=== PATIENT | male | born 2000 | race Hispanic/Latino ===

== ENCOUNTER 2024-12-22 10:33 | Emergency (ER) | payer SELFPAY ==
[2024-12-22] MEDS ORDERED: NA CHLORIDE 0.9% 1,000 ML ONE (10:49)
[2024-12-22] MEDS ORDERED: TDAP (DIPHTH,PERTUSS(ACELL),TET VAC) 0.5 ML VIAL IMVAC ONE (10:49)
[2024-12-22 10:57] LABS: Absolute Eosinophils 0.1 K/uL (0-0.5); Absolute Lymphocytes (CBC) 1.7 K/uL (0.7-4.9); Absolute Monocytes 0.6 K/uL (0.1-1.3); Absolute Neutrophil 6.3 K/uL (1.8-8.0); Basophils % 0.5 % (0-1.3); Eosinophils % 0.7 % (0-4.4); Hematocrit 46.5 % (39.6-49.0); Hemoglobin 16.1 g/dL (13.6-17.9); Lymphocytes % 19.9 % (15.3-44.8); MCH 31.6 pg (27.0-35.0); MCHC 34.6 g/dL (32.0-36.0); MCV 91.3 fL (80-100); MPV 7.9 fL (7.6-11.3); Monocytes % 6.6 % (3.3-12.3); Neutrophils % 72.3 % (41.7-73.7); Nucleated Red Blood Cells % 0.1 % (0-0); Platelets 336 thou/uL (152-406); Red Cell Distribution Width 13.1 % (12.1-15.2)
[2024-12-22 11:17] LABS: Anion Gap 10.8 mEq/L (5.0-15.0); Potassium 3.8 mEq/L (3.5-5.1)
--- NOTE | 2024-12-22 11:17 | RAD REPORT ---
EXAMINATION: Head C Spine Mpr Wo Con CLINICAL INDICATION: Male, 24 years old. TRAUMA TECHNIQUE: Axial CT images from the skull base to the vertex without intravenous contrast. Axial CT i mages through the cervical spine were obtained without intravenous contrast. Sagittal and coronal reformatted images were created from the data set. Coronal and sagittal reformatted images were creat ed from the data set. One or more of the following dose reduction techniques were used: Automated exposure control, adjustment of the mA and/or kV according to patient size, and/or iterative reconstr uction. Unless otherwise specified, incidental findings do not require dedicated imaging follow-up. [id number]. COMPARISON: No prior exam. FINDINGS: Head: INTRACRANIAL: No acute intracranial hemorrhage. No hydrocephalus. No mass effect or midline shift. No significant white matter disease. VASCULATURE: No visualized abnormalities in the arteries or dural venous sinuses. SCALP/SKULL: No calvarial fracture identified. No acute soft tissue abnormality. SINUSES: Polyp versus mucus retention cyst in a dilated left ethmoid air cell. No significant mastoid fluid. Cervical spine: ALIGNMENT: The cervical spine has normal alignment without scoliosis or spondylolisthesis. BONE: Vertebral body heights are maintained. No aggressive osseous lesions. DEGENERATIVE: No significant focal degenerative changes. SOFT TISSUE: No significant abnormalities in the soft tissue of the neck. The visualized lung apices are clear. IMPRESSION: No acute intracranial abnormality. No acute fracture or traumatic malalignment of the cervical spine.
--- NOTE | 2024-12-22 11:37 | ER ---
Nurse's Notes [facility] Name: Yohan Shetty Age: 24 yrs Sex: Male : 2000 Arrival Date: 12/22/2024 Time: 10:33 Bed 4 Private MD: Diagnosis: Scalp Laceration/ Open wound of scalp;Concussion with loss of consciousness of unspecified duration Presentation: 12/22 10:37 Chief complaint: Patient states: Most likely passed out in the shower this morning. ll1 Laceration to scalp noted. Coronavirus screen: Client denies travel out of the [place] in the last 14 days. At this time, the client does not indicate any symptoms associated with coronavirus-19. Ebola Screen: Patient denies travel to an Ebola-affected area in the 21 days before illness onset. Mechanism of Injury: The problem was sustained at home, resulted from a fall. Initial Sepsis Screen: Does the patient meet any 2 criteria? No. Patient's initial sepsis screen is negative. Does the patient have a suspected source of infection? No. Patient's initial sepsis screen is negative. Risk Assessment: Do you want to hurt yourself or someone else? Patient reports no desire to harm self or others. Onset of symptoms was December 22, 2024. 10:37 Method Of Arrival: Ambulatory ll1 10:37 Acuity: REENA 2 ll1 Triage Assessment: 10:38 General: Appears uncomfortable, Behavior is calm, cooperative, appropriate for age, ll1 Reports fatigue for possible syncope. Pain: Complains of pain in scalp Quality of pain is described as aching. Neuro: Level of Consciousness is awake, alert, obeys commands, Reports headache a syncopal episode weakness. Derm: Reports laceration to scalp. Musculoskeletal:. Injury Description: Head injury Bruise. Historical: - Allergies: 10:38 No Known Allergies; ll1 - PMHx: 10:38 None; ll1 - PSHx: 10:38 None; ll1 - Immunization history:: Adult Immunizations up to date. - Infectious Disease History:: Denies. - Social history:: Smoking status: Patient denies any tobacco usage or history of. Screenin:51 [facility] ED Fall Risk Assessment (Adult) History of falling in the last 3 months, ll1 including since admission Yes- physiologic fall (2 pts) Confusion or Disorientation Yes (5 pts) Intoxicated or Sedated No (0 pts) Impaired Gait Yes (1 pt) Mobility Assist Device Used Yes (1 pt) Altered Elimination No (0 pt) Score/Fall Risk Level 3 or more points = High Risk Maintained a safe environment, Hourly rounding (assess needs \T\ fall precautionary measures) done, Remained with patient while ambulating. Abuse screen: Denies threats or abuse. Nutritional screening: No deficits noted. Tuberculosis screening: No symptoms or risk factors identified. Assessment: 10:51 Reassessment: No changes from previously documented assessment. Patient and/or family ll1 updated on plan of care and expected duration. Pain level reassessed. Patient is alert, oriented x 3, equal unlabored respirations, skin warm/dry/pink. 11:30 Reassessment: No changes from previously documented assessment. Patient and/or family ll1 updated on plan of care and expected duration. Pain level reassessed. Patient is alert, oriented x 3, equal unlabored respirations, skin warm/dry/pink. 11:58 Reassessment: No changes from previously documented assessment. Patient and/or family ll1 updated on plan of care and expected duration. Pain level reassessed. Patient is alert, oriented x 3, equal unlabored respirations, skin warm/dry/pink. Patient states feeling better. Vital Signs: 10:37 BP 141 / 96; Pulse 96; Resp 16; Temp 98; Pulse Ox 100% on R/A; ll1 10:47 BP 141 / 96; Pulse 96; Resp 17; Temp 98; Pulse Ox 98% ; merly 11:58 BP 141 / 99; Pulse 89; Resp 16; Pulse Ox 100% ; ll1 11:58 BP 141 / 99; Pulse 89; Resp 16; Pulse Ox 100% ; ll1 [place] Coma Score: 10:37 Eye Response: spontaneous(4). Motor Response: obeys commands(6). Verbal Response: ll1 oriented(5). Total: 15. 11:40 Eye Response: spontaneous(4). Motor Response: obeys commands(6). Verbal Response: sb4 oriented(5). Total: 15. ED Course: 10:34 Patient arrived in ED. im 10:34 Jennifer Ferraro PA-C is PHCP. sb4 10:34 Mack Saleh MD is Attending Physician. sb4 10:38 Triage completed. ll1 10:38 Arm band placed on Patient placed in an exam room, on a stretcher. ll1 10:39 Cuco Elizalde, RN is Primary Nurse. ll1 10:50 Initial lab(s) drawn, by me, sent to lab. Inserted saline lock: 20 gauge in right ll1 antecubital area, using aseptic technique. Blood collected. Flushed with 10 mL NS. 10:52 Patient has correct armband on for positive identification. Provided Education on: ER ll1 procedures and process. 11:09 CT Head C Spine In Process Unspecified. EDMS 11:58 No provider procedures requiring assistance completed. IV discontinued, intact, ll1 bleeding controlled, No redness/swelling at site. Pressure dressing applied. Administered Medications: 10:52 Drug: Boostrix Tdap IM 0.5 ml IM once; as a single dose Route: IM; Site: left deltoid; bp 12:06 Follow up: Response: No adverse reaction ll1 10:52 Drug: NS 0.9% IV 1000 ml IV at 1000 ml once; to be given as a bolus over 60 minutes bp Route: IV; Rate: 1000 ml; Site: right antecubital; 11:59 Follow up: Response: No adverse reaction; IV Status: Completed infusion; IV Intake: ll1 850ml Medication: 10:51 Vaccine Information Statement (VIS) provided today. Questions and/or concerns ll1 addressed. VIS edition date: April 10, 2021. Intake: 11:59 IV: 850ml; Total: 850ml. ll1 Outcome: 11:36 Discharge ordered by MD. sb4 11:59 Patient left the ED. hb 11:59 Discharged to home ambulatory, ll1 11:59 Condition: stable 11:59 Discharge instructions given to patient, Instructed on discharge instructions, follow up and referral plans. Demonstrated understanding of instructions, follow-up care, Signatures: Dispatcher [employer] EDNC Sahara Asher RN RN Angel Samuels RN RN bp Cuco Elizalde, MK RN ll1 Jennifer Ferraro, JANETH PARiddhi sb4 Karina Prajapati im
--- NOTE | 2024-12-22 11:37 | EDPHYS ---
Physician Documentation [facility] Name: Yohan Shetty Age: 24 yrs Sex: Male : 2000 Arrival Date: 12/22/2024 Time: 10:33 Bed 4 Private MD: ED Physician Mack Saleh HPI: 12/22 10:40 This 24 yrs old Male presents to ER via Ambulatory with complaints of Head Injury-Adult.sb4 10:40 Patient presents with a scalp laceration. Believes he slipped and fell while taking a sb4 shower but is not sure. Reports pain in the back of his head. Denies any other injuries. Denies any medical problems. Historical: - Allergies: 10:38 No Known Allergies; ll1 - PMHx: 10:38 None; ll1 - PSHx: 10:38 None; ll1 - Immunization history:: Adult Immunizations up to date. - Infectious Disease History:: Denies. - Social history:: Smoking status: Patient denies any tobacco usage or history of. ROS: 10:40 Constitutional: Negative for fever, chills, and weight loss, sb4 10:40 Skin: Positive for laceration(s), of the scalp, 10:40 Neuro: Positive for dizziness, headache, 10:40 All other systems are negative, Exam: 10:40 Eyes: Extra-ocular motions intact. Periorbital areas with no swelling, redness, or sb4 edema. ENT: Mucous membranes moist. Cardiovascular: Regular rate and rhythm with a normal S1 and S2. Respiratory: No increased work of breathing, no retractions or nasal flaring. Abdomen/GI: Soft, non-tender, no distension. 10:40 Head/face: Noted is a laceration(s), that is deep, 5 cm(s), of the right occipital area, 10:40 Neuro: Mentation: responsive to voice able to follow commands, slow to respond, Vital Signs: 10:37 BP 141 / 96; Pulse 96; Resp 16; Temp 98; Pulse Ox 100% on R/A; ll1 10:47 BP 141 / 96; Pulse 96; Resp 17; Temp 98; Pulse Ox 98% ; merly 11:58 BP 141 / 99; Pulse 89; Resp 16; Pulse Ox 100% ; ll1 11:58 BP 141 / 99; Pulse 89; Resp 16; Pulse Ox 100% ; ll1 [place] Coma Score: 10:37 Eye Response: spontaneous(4). Motor Response: obeys commands(6). Verbal Response: ll1 oriented(5). Total: 15. 11:40 Eye Response: spontaneous(4). Motor Response: obeys commands(6). Verbal Response: sb4 oriented(5). Total: 15. Laceration: 11:40 Wound Repair of 5cm ( 2.0in ) subcutaneous laceration to right occipital area. Distal sb4 neuro/vascular/tendon intact. Wound prep: Simple cleansing with betadine by me, Wound irrigation with saline by me. Skin closed with 5 Manav using staple gun. Patient tolerated well. MDM: 10:34 Medical Screening Exam initiated sb4 11:40 Data reviewed: vital signs, nurses notes, lab test result(s), radiologic studies, and sb4 as a result, I will discharge patient. Counseling: I had a detailed discussion with the patient and/or guardian regarding the historical points, exam findings, and any diagnostic results supporting the discharge/admit diagnosis, lab results, radiology results, the need for outpatient follow up, for definitive care, for staple removal in 5-7 days, to return to the emergency department if symptoms worsen or persist or if there are any questions or concerns that arise at home. 12/22 10:38 Order name: Basic Metabolic Panel; Complete Time: 11:18 sb4 12/22 10:38 Order name: CBC with Diff; Complete Time: 11:03 sb4 12/22 10:38 Order name: CT Head C Spine; Complete Time: 11:17 sb4 12/22 10:38 Order name: Labs collected and sent; Complete Time: 10:45 sb4 Administered Medications: 10:52 Drug: Boostrix Tdap IM 0.5 ml IM once; as a single dose Route: IM; Site: left deltoid; bp 12:06 Follow up: Response: No adverse reaction ll1 10:52 Drug: NS 0.9% IV 1000 ml IV at 1000 ml once; to be given as a bolus over 60 minutes bp Route: IV; Rate: 1000 ml; Site: right antecubital; 11:59 Follow up: Response: No adverse reaction; IV Status: Completed infusion; IV Intake: ll1 850ml Disposition Summary: 12/22/24 11:36 Discharge Ordered Notes: Location: Home sb4 Problem: new sb4 Symptoms: have improved sb4 Condition: Stable sb4 Diagnosis - Scalp Laceration/ Open wound of scalp sb4 - Concussion with loss of consciousness of unspecified duration sb4 Followup: sb4 - With: Private Physician - When: 1 week - Reason: Staple/Suture removal Discharge Instructions: - Discharge Summary Sheet sb4 - Laceration Care, Adult, [id number] sb4 - Concussion, Adult, [id number] sb4 - Sutures, Manav, or Adhesive Wound Closure, [id number] sb4 Forms: - Patient Portal Instructions sb4 - Leadership Thank You Letter sb4 Addendum: 12/23/2024 13:00 Co-signature as Attending Physician, Mack Saleh MD I agree with the assessment and c britt plan of care. Signatures: Dispatcher [employer] EDMack Pate MD MD cha Peltier, Brian, RN RN bp Cuco Elizalde RN RN ll1 Jennifer Ferraro PA-C PA-C sb4 Corrections: (The following items were deleted from the chart) 12/22 10:39 10:39 BASIC METABOLIC PANEL+C.LAB.BRZ ordered. EDMS EDMS 10:39 10:39 CBC+H.LAB.BRZ ordered. EDMS EDMS 10:39 10:39 Head C Spine MPR Wo Con+CT.RAD.BRZ ordered. EDMS EDMS
[2024-12-22 12:28] VITALS: BP 141/96; TEMP 98; O2SAT 98
== END 2024-12-22 11:59 | disposition home or self-care (01) ==
LOC: ER 10:33
DX: S01.01XA Laceration without foreign body of scalp, initial encounter (principal); S06.0X9A Concussion with loss of consciousness of unspecified duration, initial encounter; W18.2XXA Fall in (into) shower or empty bathtub, initial encounter
CPT/HCPCS: 12032; 36415; 70450; 72125; 80048; 85025; 90715; 96360; 96372; 99284; J7030